=== PATIENT | male | born 1940 | race Caucasian/White ===

== ENCOUNTER 2017-06-04 14:54 | Emergency (ER) | payer OTHER ==
[2017-06-04 15:22] VITALS: BP 128/71; PULSE 72; TEMP 99; BMI 26.2
--- NOTE | 2017-06-04 15:57 | PDOC ---
History of Present Illness - General History Source: Patient Exam Limitations: No Limitations - History of Present Illness Initial Comments: 06/04/17 16:40 The patient is a 77 year old male, with a significant past medical history of dysrhythmia, hypertension, and diverticulosis, who presents to the emergency department with an injury to his left foot status post tripping down the stairs this afternoon. The patient reports that he was going down the stairs to the bathroom and had socks on when he lost his footing on the carpeted stairs and bashed his toes at the bottom. He reports that the affected area is bleeding, swollen. bruised, and painful. The patient does not recall when his last tetanus shot was. He denies chest pain, shortness of breath, headache, lightheadedness and dizziness. He denies hitting his head, LOC, and any other bodily pain or injury. Allergies: clindamycin, aspirin, penicillin Social History: Never smoked, drinks alcohol socially <Caryn Morrell - Last Filed: 06/04/17 16:40> <Erika Arvizu - Last Filed: 06/04/17 18:02> - General Chief Complaint: Bone Injury Stated Complaint: LEFT FOOT INJURY Time Seen by Provider: 06/04/17 14:56 Past History <Caryn Morrell - Last Filed: 06/04/17 16:40> - Past Medical History Cardiac Disorders: Yes (DYSRYTHMIA) GI Disorders: Yes (DIVERTICULOSIS) HTN: Yes Other medical history: SKIN CANCER - Psycho/Social/Smoking Cessation Hx Anxiety: No Suicidal Ideation: No Smoking Status: Yes Smoking History: Never smoked Number of Cigarettes Smoked Daily: 0 Information on smoking cessation initiated: No Hx Alcohol Use: Yes (SOCIAL) Drug/Substance Use Hx: No Substance Use Type: Alcohol <Erika Arvizu - Last Filed: 06/04/17 18:02> - Past Medical History Allergies/Adverse Reactions: Allergies Allergy/AdvReac Type Severity Reaction Status Date / Time clindamycin Allergy Intermediate Verified 06/04/17 14:56 aspirin Allergy Unknown Verified 06/04/17 14:56 Penicillins Allergy Unknown Verified 06/04/17 14:56 Home Medications: Ambulatory Orders Amlodipine Besylate [Norvasc -] 5 mg PO DAILY 06/30/14 Hydrochlorothiazide [Hctz -] 12.5 mg PO DAILY 06/30/14 Metoprolol Succinate [Toprol XL -] 25 mg PO DAILY 06/30/14 Zolpidem Tartrate [Ambien] 10 mg PO HS 06/30/14 Ranitidine [Zantac -] 150 mg PO DAILY 06/04/17 Tramadol HCl 0.5 - 1 tab PO Q6H PRN #12 tablet MDD 4 tabs 06/04/17 Review of Systems - Review of Systems Able to Perform ROS?: Yes Comments:: 06/04/17 16:41 GENERAL/CONSTITUTIONAL: No fever or chills. No weakness. HEAD, EYES, EARS, NOSE AND THROAT: No change in vision. No ear pain or discharge. No sore throat. CARDIOVASCULAR: No chest pain or shortness of breath. RESPIRATORY: No cough, wheezing, or hemoptysis. GASTROINTESTINAL: No nausea, vomiting, diarrhea or constipation. GENITOURINARY: No dysuria, frequency, or change in urination. MUSCULOSKELETAL: +Pain to left foot No neck or back pain. SKIN: +Bleeding, swelling, and bruising to 3, 4, 5 toes on left foot No rash NEUROLOGIC: No headache, vertigo, loss of consciousness, or change in strength/ sensation. ENDOCRINE: No increased thirst. No abnormal weight change. HEMATOLOGIC/LYMPHATIC: No anemia, easy bleeding, or history of blood clots. ALLERGIC/IMMUNOLOGIC: No hives or skin allergy. <Caryn Morrell - Last Filed: 06/04/17 16:40> *Physical Exam - Vital Signs Last Vital Signs Temp Pulse Resp BP Pulse Ox 99 F 72 18 128/71 96 06/04/17 14:55 06/04/17 14:55 06/04/17 14:55 06/04/17 14:55 06/04/17 14:55 <Caryn Morrell - Last Filed: 06/04/17 16:40> - Vital Signs Last Vital Signs Temp Pulse Resp BP Pulse Ox 99 F 72 18 128/71 96 06/04/17 14:55 06/04/17 14:55 06/04/17 14:55 06/04/17 14:55 06/04/17 14:55 - Physical Exam Comments: GENERAL: Awake, alert, and fully oriented, in no acute distress HEAD: No signs of trauma EYES: PERRLA, EOMI, sclera anicteric, conjunctiva clear ENT: Auricles normal inspection, hearing grossly normal, nares patent, oropharynx clear without exudates. Moist mucosa NECK: Normal ROM, supple, no lymphadenopathy, JVD, or masses LUNGS: Breath sounds equal, clear to auscultation bilaterally. No wheezes, and no crackles HEART: Regular rate and rhythm, normal S1 and S2, no murmurs, rubs or gallops ABDOMEN: Soft, nontender, normoactive bowel sounds. No guarding, no rebound. No masses EXTREMITIES: Normal range of motion, no edema. No clubbing or cyanosis. No cords , erythema, or tenderness NEUROLOGICAL: Cranial nerves II through XII grossly intact. Normal speech, normal gait SKIN: Warm, Dry, normal turgor. +Multiple small lacerations to L foot- one between toes 3 and 4, and one between toes 4 and 5. No active bleeding from these. Also with 1cm laceration to the plantar surface at the base of the 3rd toe with oozing of blood. <Erika Arvizu - Last Filed: 06/04/17 18:02> Procedures - Laceration/Wound Repair Plantar Toe 3rd digit Wound Length: to 2.5 cm Wound Explored: clean, no foreign body present Wound's Depth, Shape: superficial Irrigated w/ Saline: Yes Anesthesia: 1% Lidocaine Amount of Anesthetic (ccs): 2 (digital blocks for toes 2-5 to facilitate exam and repair) Wound Repaired With: Sutures Suture Size/Type: 4:0, proline Number of Sutures: 2 Sterile Dressing Applied: Yes Progress: 06/04/17 15:54 Pt with multiple small lacerations to the plantar surfaces at the bases of toes 3, 4, and 5. The lacerations for toes 4-5 are small, do not require suture repair. Third toe has larger lac that was open and still oozing blood. Two sutures were placed to this wound with good hemostasis. Bacitracin applied to toes 3-5, sterile gauze packing and kerlix. Ice pack applied. <Erika Arvizu - Last Filed: 06/04/17 18:02> ED Treatment Course - Medications Given in the ED: ED Medications Discontinued Medications Generic Name Dose Route Start Last Admin Trade Name Freq PRN Reason Stop Dose Admin Diphtheria/Tetanus/Acell Pertussis 0.5 ml 06/04/17 15:58 06/04/17 16:04 Adacel Adolescent/Adult - IM 06/04/17 15:59 Not Given .ONCE ONE Diphtheria/Tetanus/Acell Pertussis 0.5 ml 06/04/17 16:03 06/04/17 16:19 Boostrix - IM 06/04/17 16:04 0.5 ml .ONCE ONE Administration <Caryn Morrell - Last Filed: 06/04/17 16:40> *DC/Admit/Observation/Transfer - Attestations Scribe Attestion: 06/04/17 16:41 Documentation prepared by MARIE Artis, acting as medical laboratory technologist for Erika Arvizu MD. <Caryn Morrell - Last Filed: 06/04/17 16:40> - Discharge Dispostion Admit: No <Erika Arvizu - Last Filed: 06/04/17 18:02> Diagnosis at time of Disposition: Laceration of toe Qualifiers: Encounter type: initial encounter Toe: unspecified toe Damage to nail status: without damage Foreign body presence: without foreign body Laterality: left Qualified Code(s): S91.119A - Laceration without foreign body of unspecified toe without damage to nail, initial encounter - Discharge Dispostion Disposition: HOME Condition at time of disposition: Stable - Patient Instructions Printed Discharge Instructions: DI for Laceration Repair -- Simple, DI for Foot Sprain Additional Instructions: RETURN TO THE ER BETWEEN JUNE 12- TO HAVE YOUR STITCHES REMOVED. RETURN SOONER FOR SEVERE PAIN, REDNESS, DRAINAGE OF PUS. KEEP THE WOUNDS DRY FOR THE FIRST 48 HOURS. AFTER THAT IT IS OK IF THEY GET WET , BUT DRY THEM WELL AND COVER WITH GAUZE.
[2017-06-04] MEDS ORDERED: DIPHTH,PERTUSS(ACELL),TET VAC 0.5 ML VIAL IM ONE (15:58)
[2017-06-04] MEDS ORDERED: DIPHTH,PERTUSS(ACELL),TET 0.5 ML DISP.SYRIN IM ONE (16:03)
[2017-06-04] MEDS ORDERED: ACETAMINOPHEN 325 MG TABLET (FP) PO ONE (17:54)
[2017-06-04] MEDS ORDERED: ACETAMINOPHEN 325 MG TABLET (FP) ONE (17:55)
== END 2017-06-04 18:08 | disposition home or self-care (01) ==
LOC: FER 14:54
PROC: 0HQNXZZ Repair Left Foot Skin, External Approach (ICD-10-PCS; principal; 2017-06-04)
PROC: 3E0234Z Introduction of Serum, Toxoid and Vaccine into Muscle, Percutaneous Approach (ICD-10-PCS; 2017-06-04)
DX: S91.119A Laceration without foreign body of unspecified toe without damage to nail, initial encounter (principal); W10.9XXA Fall (on) (from) unspecified stairs and steps, initial encounter; Y93.89 Activity, other specified; Y92.9 Unspecified place or not applicable; I10 Essential (primary) hypertension; Z85.828 Personal history of other malignant neoplasm of skin; I49.9 Cardiac arrhythmia, unspecified
CPT/HCPCS: 73630-TC-LT; 90715; 99283-25

== ENCOUNTER 2019-12-24 07:11 | Inpatient (IN) | payer OTHER ==
--- NOTE | 2019-12-24 07:34 | PDOC ---
History of Present Illness - General Chief Complaint: Chest Pain Stated Complaint: CHEST PAIN Time Seen by Provider: 12/24/19 07:33 History Source: Patient Exam Limitations: No Limitations - History of Present Illness Initial Comments: 12/24/19 07:34 Hair Allen is an 79M with PMH HTN, GERD, diverticulitis, possible undiagnosed dementia presenting with new onset chest pain. Patient presents with at bedside, neither of whom is a good historian. Reports that at around 2AM woke up with a R-sided parasternal chest pain, called EMS. Per EMS report, patient was in pain and diaphoretic when they got there, and patient reports some milder chest pain at this time. Patient unable to characterize pain well, just says it hurts. Per , has had one episode of chest pain like this 2 years ago in [place] and brought ECG, but patient is unable to remember any prior episodes. Denies any history of heart attack, stroke, or CHF, was formerly on Lasix but taken off for some reason. Denies any prior illness, sick contacts, swelling in legs, abdominal pain, fever/chills, dizziness, N/V, diarrhea. Only medications taken daily are BID metoprolol and amlodipine for HTN. Past History - Past Medical History Allergies/Adverse Reactions: Allergies Allergy/AdvReac Type Severity Reaction Status Date / Time clindamycin Allergy Intermediate Verified 06/04/17 14:56 aspirin Allergy Unknown Verified 06/04/17 14:56 Penicillins Allergy Unknown Verified 06/04/17 14:56 Home Medications: Ambulatory Orders Amlodipine Besylate [Norvasc -] 5 mg PO DAILY 06/30/14 Metoprolol Succinate [Toprol XL -] 25 mg PO DAILY 06/30/14 Cardiac Disorders: Yes (DYSRYTHMIA) GI Disorders: Yes (DIVERTICULOSIS) HTN: Yes - Psycho Social/Smoking Cessation Hx Smoking Status: Yes Smoking History: Never smoked Number of Cigarettes Smoked Daily: 0 Hx Alcohol Use: Yes (SOCIAL) Drug/Substance Use Hx: No Substance Use Type: Alcohol Review of Systems - Review of Systems Able to Perform ROS?: Yes Constitutional: No: Chills, Fever HEENTM: No: Eye Pain, Blurred Vision, Recent change in vision Respiratory: No: Cough, Shortness of Breath, Wheezing, Hemoptysis Cardiac (ROS): Yes: Chest Pain. No: Edema, Irregular Heart Rate, Lightheadedness, Palpitations, Syncope, Chest Tightness ABD/GI: No: Diarrhea, Nausea, Poor Appetite, Poor Fluid Intake, Vomiting : No: Symptoms Reported Musculoskeletal: No: Symptoms Reported Integumentary: No: Symptoms Reported Neurological: No: Headache, Numbness, Paresthesia, Weakness, Unsteady Gait, Ataxia, Dizziness Endocrine: No: Symptoms Reported Hematologic/Lymphatic: No: Symptoms Reported All Other Systems: Reviewed and Negative *Physical Exam - Physical Exam General Appearance: Yes: Nourished, Appropriately Dressed, Obese HEENT: positive: EOMI, SACHIN, Normal Voice, Symmetrical, Pharynx Normal, Hearing Decreased. negative: Normal ENT Inspection, Scleral Icterus (R), Scleral Icterus (L), Muffled/Hoarse voice, Pharyngeal Erythema, Tonsillar Exudate Neck: positive: Trachea midline, Normal Thyroid, Supple. negative: Tender, Rigid, Lymphadenopathy (R), Lymphadenopathy (L) Respiratory/Chest: positive: Chest Tender (reproducible chest pain to R anterior chest wall by RLSB), Crackles (bialteral lung bases). negative: Respiratory Distress, Accessory Muscle Use, Decreased Breath Sounds Cardiovascular: positive: Regular Rhythm, Regular Rate. negative: Murmur Gastrointestinal/Abdominal: positive: Normal Bowel Sounds, Soft, Protuberent. negative: Tender, Organomegaly, Pulsatile Mass, Guarding, Rebound Musculoskeletal: positive: Normal Inspection. negative: CVA Tenderness, Vertebral Tenderness Extremity: positive: Normal Capillary Refill, Normal Inspection, Normal Range of Motion, Tender (upper back bilateral reproducible pain above body of scapula bilaterally), Pelvis Stable. negative: Swelling, Calf Tenderness Integumentary: positive: Normal Color, Dry, Warm Neurologic: positive: Fully Oriented, Alert, Normal Mood/Affect, Normal Response , Motor Strength 5/5 (alert to self, birthday, location, date, month). negative : Facial Droop, Numbness, Sensory Deficit ED Treatment Course - LABORATORY CBC & Chemistry Diagram: 12/24/19 08:11 12/24/19 08:11 Medical Decision Making - Medical Decision Making 12/24/19 08:05 Patient is a poor historian, but presents with new onset chest pain for 5 hours , reproducible, but associated with diaphoresis. Only reported history of HTN, possibly CHF but no longer on Lasix. Still having chest pain, no SOB, but has crackles at both lung bases concerning for CHF, PNA, effusion. No muffled heart sounds, no pedal edema. Evaluating for ACS. BP 119/76 (RA) and 120/71 (LA), no BP differential between arms concerning for dissection despite upper back pain. - CMP/CBC for eval lytes/infection - CP/ECG/CXR for eval ACS - BNP for eval CHF ECG shows LBBB and LAD with HR 56 QRS 82 QTc 416, no obvious TWI or ischemic changes, relatively unchanged from prior from 2017 in OSH. 12/24/19 08:22 Patient reporting stronger chest pain at this time, ordering for 0.5in Nitropaste. 12/24/19 10:06 Labs notable for: - CMP WNL - CBC WNL - trop 0.07, no priors Patient will need admission for further evaluation of chest pain and crackles on exam, needs ECHO and further evaluation. HEART Score of 5 given age, LBBB, history, obesity/HTN 12/24/19 14:29 Discussed case with HAIR SPECIALIST ginny Rueda for admit tele/obs under Dr. Larson. Would like Dr. Guerrero consult. Dr. Guerrero recommends CTA chest for evaluation of dissection, will order. Discharge - Discharge Information Problems reviewed: Yes Clinical Impression/Diagnosis: Chest pain Qualifiers: Chest pain type: unspecified Qualified Code(s): R07.9 - Chest pain, unspecified Condition: Stable - Admission Yes - Follow up/Referral - Patient Discharge Instructions - Post Discharge Activity
--- NOTE | 2019-12-24 07:43 | PDOC ---
Attending Attestation - Resident Resident Name: CecilioYaniv - ED Attending Attestation I have performed the following: I have examined & evaluated the patient, The case was reviewed & discussed with the resident, I agree w/resident's findings & plan - HPI HPI: 12/24/19 07:28 79y M hx of dysrrhtyhmia, htn, diverticulotsis, presents to the ED with chest pain. Pt notes that he was feeling fine yesterday during the day, however, approximtaely 2am he developed a chest pain and r sided back pain. Pt does remember having this pain i nthe past but doesnt remember the circmstances of the pain. Pt denies any sob, n/v, diaphoersis, lightheadedness palpitations. Pt notes he still has some substernal cp and right sided back pain. Pt unable to elaborate on the nature o fthe pain. Allergies: clindamycin, aspirin, penicillin Social History: Never smoked, drinks alcohol socially - Physicial Exam PE: 12/24/19 07:44 GENERAL: The patient is awake, alert, and fully oriented, Nontoxic - in no acute distress. HEAD: Normocephalic, atraumatic. EYES: extraocular movements intact, sclera anicteric, conjunctiva clear. ENT: Normal voice, Moist mucous membranes. NECK: Normal range of motion, supple LUNGS: basilar rales, no acute respira HEART: Regular rate and rhythm, normal S1 and S2 without murmur, rub or gallop. ABDOMEN: Soft, nontender, No guarding, no rebound. No CVA tenderness EXTREMITIES: Normal range of motion, no edema. NEUROLOGICAL: No facial assymetry, Normal speech, PSYCH: Normal mood, normal affect. SKIN: Warm, Dry, normal turgor, - Medical Decision Making 12/24/19 07:44 79-year-old gentleman history of dysrhythmia, hypertension, and diverticulosis, presenting with a complaint of chest pain Clinically the patient is well-appearing, no distress, with an unremarkable physical exam ddx - includes possible acs, consider dissecton, however pain is reproducible to palpation and bp is symmetric in bilateral arms and pts not hypertension will ck labs, trop 12/24/19 09:56 pts labs reviewed, cxr reviewed will admit for further mangaement Heart Score/ECG Review - ECG Impressions Comment:: 12/24/19 07:45 Twelve-lead EKG was performed and reviewed by me. There is normal sinus rhythm with a normal rate. Rate of 65 left axis deviation LBBB ekg unchanged when compare with prior ekg from 2017
[2019-12-24] MEDS ORDERED: NITROGLYCERIN 2% OINTMENT - 1GM PACKET TD ONE ×2 (08:21→08:31)
[2019-12-24] MEDS ORDERED: ACETAMINOPHEN 1000 MG/100 ML VIAL (NON FORMULARY) IVPB ONE (08:39)
[2019-12-24] MEDS ORDERED: ACETAMINOPHEN INJECTION 100 ML IVPB ONE (08:40)
[2019-12-24 09:01] LABS: BASO % 1.2 % (0-2.0); HEMOGLOBIN 15.2 GM/dL (11.7-16.9); LYMPH % 31.4 % (8-40); MCH 32.7 pg (25.7-33.7); MCHC 34.5 g/dl (32.0-35.9); MEAN CELL VOLUME 94.8 fl (80-96); MEAN PLT VOLUME 8.3 fl (7.5-11.1); MONO % 9.2 % (3.8-10.2); NEUT % 53.2 % (42.8-82.8); PLATELET COUNT 227 K/MM3 (134-434); RBC 4.64 M/mm3 (4.00-5.60); RDW 13.3 % (11.9-15.9); WHITE BLOOD COUNT 8.7 K/mm3 (4.0-10.0)
--- NOTE | 2019-12-24 09:23 | EKG ---
Test Reason : Blood Pressure : / mmHG Vent. Rate : 056 BPM Atrial Rate : 056 BPM P-R Int : 196 ms QRS Dur : 178 ms QT Int : 502 ms P-R-T Axes : 072 -54 080 degrees QTc Int : 484 ms SINUS BRADYCARDIA LEFT AXIS DEVIATION LEFT BUNDLE BRANCH BLOCK ABNORMAL ECG WHEN COMPARED WITH ECG OF 06-SEP-2001 10:03, LEFT BUNDLE BRANCH BLOCK IS NOW PRESENT Confirmed by Sahil Guerrero MD ([id number]) on 12/24/2019 9:22:53 AM Referred By: Confirmed By:Sahil Guerrero MD
[2019-12-24 09:34] LABS: ALBUMIN 3.5 g/dl (3.4-5.0); BILIRUBIN,TOTAL 0.6 mg/dL (0.2-1); CALCIUM 8.4 mg/dL (8.5-10.1); N-TERMINAL BNP 607.2 pg/ml (5-450); POTASSIUM 3.7 mmol/L (3.5-5.1)
[2019-12-24] MEDS ORDERED: LIDOCAINE 5% TOPICAL PATCH TP ONE (09:56)
[2019-12-24 10:23] LABS: INR 1.07 (0.83-1.09); PROTHROMBIN TIME (PATIENT) 12.6 SEC (9.7-13.0)
[2019-12-24 10:27] LABS: ACTIVATED PTT 30.7 SECONDS (25.2-36.5)
[2019-12-24] MEDS ORDERED: LIDOCAINE 5% TOPICAL PATCH ONE (10:47)
--- NOTE | 2019-12-24 12:08 | CON.CARD ---
Consult Consult Specialty:: Cardiology Referred by:: Neo Reason for Consultation:: chest pain, elevated troponin - History of Present Illness Chief Complaint: chest pain History of Present Illness: He is an 79 year old man with a history of HTN, GERD, diverticulitis, recently seen in a hospital in [place] with chest pain who presents with one day of chest pain , unable to describe, right sided with SOB and radiation to the mid back. Pain is nonexertional, waxes and wanes. No exacerbating or alleviating factors. No orthopnea, pnd or edema. Baseline exercise tolerance is good. ECG LBBB no change CXR ANDREA Troponin 0.07 - History Source History Provided By: Patient, Family Member, Medical Record - Alcohol/Substance Use Hx Alcohol Use: Yes (SOCIAL) - Smoking History Smoking history: Never smoked Aproximately how many cigarettes per day: 0 Home Medications - Allergies Allergies/Adverse Reactions: Allergies Allergy/AdvReac Type Severity Reaction Status Date / Time clindamycin Allergy Intermediate Verified 06/04/17 14:56 aspirin Allergy Unknown Verified 06/04/17 14:56 Penicillins Allergy Unknown Verified 06/04/17 14:56 - Home Medications Home Medications: Ambulatory Orders Amlodipine Besylate [Norvasc -] 5 mg PO DAILY 06/30/14 Metoprolol Succinate [Toprol XL -] 25 mg PO DAILY 06/30/14 Review of Systems - Review of Systems Constitutional: reports: No Symptoms Eyes: reports: No Symptoms HENT: reports: No Symptoms Neck: reports: No Symptoms Respiratory: reports: No Symptoms Gastrointestinal: reports: No Symptoms Genitourinary: reports: No Symptoms Musculoskeletal: reports: No Symptoms Vital Signs: Vital Signs Temperature 97.8 F 12/24/19 07:34 Pulse Rate 62 12/24/19 07:34 Respiratory Rate 16 12/24/19 07:34 Blood Pressure 128/70 12/24/19 07:34 O2 Sat by Pulse Oximetry (%) 100 12/24/19 07:34 Constitutional: Yes: Well Nourished, No Distress Eyes: Yes: Conjunctiva Clear, EOM Intact HENT: Yes: Atraumatic, Normocephalic Neck: Yes: Supple, Trachea Midline Respiratory: Yes: CTA Bilaterally Gastrointestinal: Yes: Normal Bowel Sounds, Soft Cardiovascular: Yes: Regular Rate and Rhythm JVD: No Carotid Bruit: No PMI: Non-Displaced Heart Sounds: Yes: S1, S2 Musculoskeletal: Yes: WNL Extremities: Yes: WNL Edema: No Peripheral Pulses WNL: Yes Integumentary: Yes: WNL - Other Data Labs, Other Data: CBC, BMP 12/24/19 08:11 12/24/19 08:11 INR, PTT INR 1.07 (0.83-1.09) 12/24/19 08:11 Troponin, BNP 12/24/19 08:11 Troponin I 0.07 H B-Natriuretic Peptide 607.2 H Troponin, BNP 12/24/19 08:11 Troponin I 0.07 H B-Natriuretic Peptide 607.2 H Imaging - Results Chest X-ray: Report Reviewed (ANDREA) EKG: Report Reviewed (nsr lbbb) Assessment/Plan He is an 79 year old man with a history of HTN, GERD, diverticulitis, recently seen in a hospital in [place] with chest pain who presents with one day of chest pain , unable to describe, right sided with SOB and radiation to the mid back. Pain is nonexertional, waxes and wanes. No exacerbating or alleviating factors. No orthopnea, pnd or edema. Baseline exercise tolerance is good. ECG LBBB no change CXR ANDREA Troponin 0.07 Chest pain/ NSTEMI -troponin is borderline elevated, ECG LBBB no change -pain is atypical but I am also concerned about dissection. -echo ordered -CT scan to rule out dissection -repeat CE's x 3 -asa -if CT scan is negative add Lovenox full dose -continue beta richard, increase dose as tolerated. Continue norvasc -add Imdur 30 mg daily. -will follow with you.
--- NOTE | 2019-12-24 13:30 | HP ---
Admitting History and Physical - Primary Care Physician PCP: Marlen Larson - Admission Chief Complaint: Chest Pain History of Present Illness: Patient is an 79 y/o male with past medical history of HTN. Patient states that he was woken up at 2 am with pressure-like right sided chest pain that would radiate to left upper back. Chest pain was not accompanied with SOB, dizziness, palpitations, abdominal pain. He says pain is alleviated with relaxation and exacerbated with movement. The last episode he had like this was 2 years ago in [place]. In ER noted with troponin 0.07 with no prior to compare. Cardiology consulted. History Source: Patient Limitations to Obtaining History: No Limitations - Past Medical History Cardiovascular: Yes: HTN - Past Surgical History Past Surgical History: Yes: None - Smoking History Smoking history: Never smoked Aproximately how many cigarettes per day: 0 - Alcohol/Substance Use Hx Alcohol Use: Yes (SOCIAL) - Social History Usual Living Arrangement: Yes: With Spouse ADL: Independent History of Recent Travel: No Home Medications - Allergies Allergies/Adverse Reactions: Allergies Allergy/AdvReac Type Severity Reaction Status Date / Time clindamycin Allergy Intermediate Verified 06/04/17 14:56 aspirin Allergy Unknown Verified 06/04/17 14:56 Penicillins Allergy Unknown Verified 06/04/17 14:56 - Home Medications Home Medications: Ambulatory Orders Amlodipine Besylate [Norvasc -] 5 mg PO DAILY 06/30/14 Metoprolol Succinate [Toprol XL -] 25 mg PO DAILY 06/30/14 Review of Systems - Review of Systems Constitutional: reports: No Symptoms Eyes: reports: No Symptoms HENT: reports: No Symptoms Neck: reports: No Symptoms Cardiovascular: reports: Chest Pain Respiratory: reports: No Symptoms Gastrointestinal: reports: No Symptoms Genitourinary: reports: No Symptoms Breasts: reports: No Symptoms Reported Musculoskeletal: reports: Back Pain Integumentary: reports: No Symptoms Neurological: reports: No Symptoms Endocrine: reports: No Symptoms Hematology/Lymphatic: reports: No Symptoms Psychiatric: reports: No Symptoms Physical Examination Vital Signs: Vital Signs Temperature 97.8 F 12/24/19 07:34 Pulse Rate 62 12/24/19 07:34 Respiratory Rate 16 12/24/19 07:34 Blood Pressure 128/70 12/24/19 07:34 O2 Sat by Pulse Oximetry (%) 100 12/24/19 07:34 Constitutional: Yes: No Distress, Calm Eyes: Yes: Conjunctiva Clear HENT: Yes: Atraumatic Neck: Yes: Supple Cardiovascular: Yes: Regular Rate and Rhythm Respiratory: Yes: Regular, CTA Bilaterally Gastrointestinal: Yes: Normal Bowel Sounds, Soft Musculoskeletal: Yes: WNL Extremities: Yes: WNL Edema: No Neurological: Yes: Alert, Oriented Psychiatric: Yes: Alert, Oriented Labs: CBC, BMP 12/24/19 08:11 12/24/19 08:11 Problem List - Problems (1) HTN (hypertension) Assessment/Plan: -Amlodipine, Metoprolol -low Na diet Code(s): I10 - ESSENTIAL (PRIMARY) HYPERTENSION (2) Chest pain Assessment/Plan: -Telemetry monitoring -Cardiology on board -troponin 0.07, repeat ordered -Echocardiogram -Chest CTA to R/O dissection -add Imdur 30mg daily -will add Lovenox after Chest CTA results Code(s): R07.9 - CHEST PAIN, UNSPECIFIED Qualifiers: Chest pain type: unspecified Qualified Code(s): R07.9 - Chest pain, unspecified Assessment/Plan see problem list
--- NOTE | 2019-12-24 14:59 | ECHO ---
Name: JAVON OVALLE Exam:Adult Echocardiogram Study Date: 12/24/2019 02:16 PM Age: 79 yrs Height: 70 in Weight: 190 lb BSA: 2.0 m2 MMode/2D Measurements & Calculations IVSd: 1.0 cm Ao root diam: 2.9 cm LVIDd: 4.2 cm LA dimension: 3.8 cm LVIDs: 3.2 cm ACS: 2.0 cm LVPWd: 1.3 cm EDV(Teich): 78.9 ml LVOT diam: 2.0 cm ESV(Teich): 42.0 ml RV S To: 15.2 cm/sec Doppler Measurements & Calculations MV E max to: 77.9 cm/sec MVA(VTI): 3.0 cm2 MV A max to: 54.3 cm/sec MV V2 max: 80.6 cm/sec MV E/A: 1.4 MV max P.6 mmHg MV dec time: 0.24 sec MV V2 mean: 45.2 cm/sec MV mean P.98 mmHg MV V2 VTI: 18.6 cm Ao V2 max: 107.8 cm/sec LV V1 max P.4 mmHg Ao max P.6 mmHg LV V1 mean P.9 mmHg Ao V2 mean: 83.4 cm/sec LV V1 max: 92.1 cm/sec Ao mean P.1 mmHg LV V1 mean: 64.9 cm/sec Ao V2 VTI: 21.2 cm LV V1 VTI: 18.0 cm KHUSHBU(I,D): 2.6 cm2 KHUSHBU(V,D): 2.6 cm2 MR max to: 473.5 cm/sec SV(LVOT): 55.7 ml MR max P.7 mmHg TR max to: 225.9 cm/sec PA V2 max: 88.3 cm/sec TR max P.6 mmHg PA max P.1 mmHg Med Peak E' To: 4.1 cm/sec Med E/e': 19.2 Lat Peak E' To: 11.7 cm/sec Lat E/e': 6.6 Procedure A complete two-dimensional transthoracic echocardiogram was performed (2D, M-mode, Doppler and color flow Doppler). Left Ventricle The left ventricle is normal in size. Ejection Fraction = 40%. Left ventricular systolic function is mild to moderately reduced. E/A reversal consistent with but not diagnostic of poor LV compliance. Septal mot ion is consistent with conduction abnormality. There is mild to moderate anterior wall hypokinesis. Right Ventricle The right ventricle is normal in size and function. Atria Normal left and right atrial size and function. Mitral Valve There is mild to moderate mitral valve thickening. There is mild mitral regurgitation. Tricuspid Valve The tricuspid valve is normal in structure and function. There is trace tricuspid regurgitation. Righ t ventricular systolic pressure is 28 mmhg. Assuming the RA pressure is 5 mmHg. Aortic Valve There is mild to moderate aortic valve thickening. Pulmonic Valve The pulmonic valve is normal in structure and function. Great Vessels The aortic root is normal size. Normal aortic arch, descending and ascending aorta. No obvious dissec tion could be visualized. Pericardium/Pleura There is no pericardial effusion. There is no pleural effusion. Interpretation Summary The left ventricle is normal in size. Septal motion is consistent with conduction abnormality. There is mild to moderate anterior wall hypokinesis. Left ventricular systolic function is mild to moderately reduced. Ejection Fraction = 40%. There is mild to moderate mitral valve thickening. There is mild mitral regurgitation. There is trace tricuspid regurgitation. Right ventricular systolic pressure is 28 mmhg. There is mild to moderate aortic valve thickening. The aortic root is normal size. Normal aortic arch, descending and ascending aorta No obvious dissection could be visualized. MD Sahil Guerrero 12/24/2019 02:59 PM
[2019-12-24 21:42] VITALS: BMI 28.1
[2019-12-24] MEDS ORDERED: HEPARIN NA (PORCINE) 5,000 UNITS/ML 1ML VIAL SQ SCH (22:00)
[2019-12-24 22:39] LABS: URINE APPEARANCE CLEAR; URINE BILIRUBIN NEGATIVE (NEGATIVE); URINE COLOR YELLOW; URINE GLUCOSE (UA) 500 mg/dl (NEGATIVE); URINE KETONE 15 mg/dl (NEGATIVE); URINE PROTEIN NEGATIVE (NEGATIVE)
[2019-12-24 22:40] LABS: EPI CELLS 0.5 /HPF (0-5/HPF); URINE BACTERIA 0.7 /hpf (NEGATIVE); URINE LEUK ESTERASE NEGATIVE (NEGATIVE); URINE NITRITE NEGATIVE (NEGATIVE); URINE UROBILINOGEN 0.2 mg/dL (0.2-1.0); URINE WBC 0.3 /hpf (0-5)
[2019-12-24 23:12] LABS: COCAINE, UR NEGATIVE ng/ml (CUTOFF=300); METHADONE, UR NEGATIVE ng/ml (CUTOFF=300); OPIATES, URI NEGATIVE ng/ml (CUTOFF=300); PHENCYCLIDINE,URINE NEGATIVE ng/ml (CUTOFF=25); URINE BARBITURATES NEGATIVE ng/ml (CUTOFF=200); URINE BENZODIAZEPINES NEGATIVE ng/ml (CUTOFF=200)
[2019-12-24 23:13] LABS: URINE AMPHETAMINES NEGATIVE ng/ml (CUTOFF=500)
--- NOTE | 2019-12-24 23:54 | HOSP ---
Subjective - Review of Symptoms Events since last encounter: hospitalist encounter Notified by the RN that the patient's feels that the patient is confused and not at his baseline. The RN reports that the patient was removing his cardiac leads, and stated" I don't like this hotel, I want to leave". Was asked to assess Orders placed Arrived to bedside, patient is asleep but arousable, alert to name, place and year. he did not know the current president's name- he initially said [place]. PE performed see EMR. Assessment: This is a 79 y/o man with a PMHx of HTN, GERD, Diverticulitis, undiagnosed Dementia. Admitted to Telemetry for Chest Pain Plan: Head CT UA, Urine Culture UDT, ETOH, RPR, Vit B12 levels Fall Precautions Neurochecks Neurological: Yes: Confusion Physical Examination Vital Signs: Vital Signs Temperature 98 F 12/24/19 21:23 Pulse Rate 99 H 12/24/19 21:23 Respiratory Rate 18 12/24/19 21:23 Blood Pressure 150/79 12/24/19 21:23 O2 Sat by Pulse Oximetry (%) 97 12/24/19 21:23 Constitutional: Yes: Well Nourished, No Distress, Calm Eyes: Yes: WNL, Conjunctiva Clear, EOM Intact, PERRL HENT: Yes: WNL, Atraumatic, Normocephalic Neck: Yes: WNL, Supple, Trachea Midline Cardiovascular: Yes: WNL, Regular Rate and Rhythm, S1, S2 Respiratory: Yes: WNL, Regular, CTA Bilaterally Gastrointestinal: Yes: WNL, Normal Bowel Sounds, Soft Breast(s): Yes: WNL Musculoskeletal: Yes: WNL Extremities: Yes: WNL Edema: No Peripheral Pulses WNL: Yes Neurological: Yes: Alert, Confusion, Cran Nerves II-XII Intact ...Motor Strength: WNL Psychiatric: Yes: Alert Labs: CBC, BMP 12/24/19 08:11 Laboratory Results - last 24 hr 12/24/19 12/24/19 12/24/19 08:11 08:11 08:11 WBC 8.7 RBC 4.64 Hgb 15.2 Hct 44.0 MCV 94.8 MCH 32.7 MCHC 34.5 RDW 13.3 Plt Count 227 MPV 8.3 Absolute Neuts (auto) 4.6 Neutrophils % 53.2 Lymphocytes % 31.4 Monocytes % 9.2 Eosinophils % 5.0 H Basophils % 1.2 Nucleated RBC % 0 PT with INR 12.60 INR 1.07 PTT (Actin FS) 30.7 Sodium 138 Potassium 3.7 Chloride 104 Carbon Dioxide 26 Anion Gap 9 BUN 11.0 Creatinine 1.0 Est GFR (CKD-EPI)AfAm 81.45 Est GFR (CKD-EPI)NonAf 70.27 Random Glucose 242 H Calcium 8.4 L Total Bilirubin 0.6 AST 27 ALT 38 Alkaline Phosphatase 59 Creatine Kinase 145 Troponin I 0.07 H B-Natriuretic Peptide 607.2 H Total Protein 7.0 Albumin 3.5 Urine Color Urine Appearance Urine pH Ur Specific [place] Urine Protein Urine Glucose (UA) Urine Ketones Urine Blood Urine Nitrite Urine Bilirubin Urine Urobilinogen Ur Leukocyte Esterase Urine WBC (Auto) Urine RBC (Auto) Urine Casts (Auto) U Epithel Cells (Auto) Urine Bacteria (Auto) Opiates Screen Methadone Screen Barbiturate Screen Phencyclidine Screen Ur Amphetamines Screen MDMA (Ecstasy) Screen Benzodiazepines Screen Cocaine Screen U Marijuana (THC) Screen 12/24/19 12/24/19 22:00 22:00 WBC RBC Hgb Hct MCV MCH MCHC RDW Plt Count MPV Absolute Neuts (auto) Neutrophils % Lymphocytes % Monocytes % Eosinophils % Basophils % Nucleated RBC % PT with INR INR PTT (Actin FS) Sodium Potassium Chloride Carbon Dioxide Anion Gap BUN Creatinine Est GFR (CKD-EPI)AfAm Est GFR (CKD-EPI)NonAf Random Glucose Calcium Total Bilirubin AST ALT Alkaline Phosphatase Creatine Kinase Troponin I B-Natriuretic Peptide Total Protein Albumin Urine Color Yellow Urine Appearance Clear Urine pH 5.0 Ur Specific [place] 1.068 H Urine Protein Negative Urine Glucose (UA) 500 mg/dl Urine Ketones 15 mg/dl Urine Blood Trace Urine Nitrite Negative Urine Bilirubin Negative Urine Urobilinogen 0.2 Ur Leukocyte Esterase Negative Urine WBC (Auto) 0.3 Urine RBC (Auto) 2.0 Urine Casts (Auto) 0.00 U Epithel Cells (Auto) 0.5 Urine Bacteria (Auto) 0.7 Opiates Screen Negative Methadone Screen Negative Barbiturate Screen Negative Phencyclidine Screen Negative Ur Amphetamines Screen Negative MDMA (Ecstasy) Screen Negative Benzodiazepines Screen Negative Cocaine Screen Negative U Marijuana (THC) Screen Negative Current Medications Generic Name Dose Route Start Last Admin Trade Name Freq PRN Reason Stop Dose Admin Amlodipine Besylate 5 mg 12/25/19 10:00 Norvasc - PO DAILY [facility] Heparin Sodium (Porcine) 5,000 unit 12/24/19 22:00 Heparin - SQ BID [facility] Isosorbide Mononitrate 30 mg 12/25/19 10:00 Imdur - PO DAILY [facility] Metoprolol Succinate 25 mg 12/25/19 10:00 Toprol Xl - PO DAILY [facility] Miscellaneous 1 each 12/24/19 22:00 Lidoderm Patch Removal [facility] DAILY@2200 [facility]
[2019-12-24] MEDS: LIDOCAINE PATCH REMOVAL MC SCH (23:59)
[2019-12-25] MEDS ORDERED: MELATONIN 5 MG TABLETS PO ONE (01:16)
[2019-12-25 08:11] LABS: BASO % 0.3 % (0-2.0); EOS % 0.1 % (0-4.5); HEMATOCRIT 42.9 % (35.4-49); HEMOGLOBIN 14.8 GM/dL (11.7-16.9); LYMPH % 16.5 % (8-40); MCH 32.2 pg (25.7-33.7); MCHC 34.4 g/dl (32.0-35.9); MEAN CELL VOLUME 93.7 fl (80-96); MEAN PLT VOLUME 8.2 fl (7.5-11.1); MONO % 10.8 % (3.8-10.2); NEUT % 72.3 % (42.8-82.8); PLATELET COUNT 229 K/MM3 (134-434); RBC 4.59 M/mm3 (4.00-5.60); RDW 12.8 % (11.9-15.9); WHITE BLOOD COUNT 11.2 K/mm3 (4.0-10.0)
[2019-12-25 09:24] LABS: ALBUMIN 3.6 g/dl (3.4-5.0); BILIRUBIN,TOTAL 2.4 mg/dL (0.2-1); BLOOD UREA NITROGEN 17.7 mg/dL (7-18); CALCIUM 8.5 mg/dL (8.5-10.1); CREATININE 0.9 mg/dL (0.55-1.3); POTASSIUM 3.6 mmol/L (3.5-5.1); TOT PROT 6.8 g/dl (6.4-8.2)
--- NOTE | 2019-12-25 09:56 | DS ---
Physical Examination Vital Signs: Vital Signs Temperature 100.2 F H 12/25/19 01:00 Pulse Rate 106 H 12/25/19 01:00 Respiratory Rate 22 H 12/25/19 01:00 Blood Pressure 132/82 12/25/19 05:00 O2 Sat by Pulse Oximetry (%) 97 12/24/19 21:23 Findings/Remarks: Troponin, BNP 12/24/19 12/25/19 08:11 06:12 Troponin I 0.07 H 72.60 H* B-Natriuretic Peptide 607.2 H Constitutional: Yes: No Distress Eyes: Yes: Conjunctiva Clear HENT: Yes: Atraumatic Cardiovascular: Yes: Regular Rate and Rhythm Respiratory: Yes: Regular, CTA Bilaterally Gastrointestinal: Yes: Normal Bowel Sounds, Soft Musculoskeletal: Yes: WNL Extremities: Yes: WNL Edema: No Neurological: Yes: Alert, Oriented Psychiatric: Yes: Alert, Oriented Labs: CBC, BMP 12/25/19 06:12 12/25/19 06:12 Discharge Summary Problems reviewed: Yes Reason For Visit: CHEST PAIN, RULE OUT MYOCARDIAL INFARCTION Current Active Problems Chest pain (Acute) HTN (hypertension) (Acute) Hospital Course: Patient is an 79 y/o male with past medical history of HTN. Patient states that he was woken up at 2 am with pressure-like right sided chest pain that would radiate to left upper back. Chest pain was not accompanied with SOB, dizziness, palpitations, abdominal pain. He says pain is alleviated with relaxation and exacerbated with movement. The last episode he had like this was 2 years ago in [place]. In ER noted with troponin 0.07 with no prior to compare. Cardiology consulted. Repeat troponin this AM shows 72.6. Patient evaluated by Dr Guerrero from cardiology and patient is being transferred to [facility] for cardiac catheterization. Patient currently denies chest pain, SOB, dizziness. Condition: Guarded - Instructions Referrals: Marlen Larson MD [Primary Care Provider] - Sahil Guerrero MD [Staff Physician] - Disposition: TRANSFER ACUTE CARE/OTHER HOSP - Home Medications Comprehensive Discharge Medication List: Ambulatory Orders Amlodipine Besylate [Norvasc -] 5 mg PO DAILY 06/30/14 Metoprolol Succinate [Toprol XL -] 25 mg PO DAILY 06/30/14 Isosorbide Mononitrate [Imdur -] 30 mg PO DAILY tab.sr.24h 12/25/19 Lidocaine Patch Removal [Lidoderm Patch Removal] 1 each [facility] DAILY@2200 each 04/08
[2019-12-25] MEDS ORDERED: amLODIPine BESYLATE 5 MG TABLET (FP) PO SCH (10:00)
[2019-12-25] MEDS ORDERED: metoPROLOL SUCCINATE 25 MG TAB.SR.24H (FP) PO SCH (10:00)
[2019-12-25] MEDS ORDERED: ISOSORBIDE MONONITRATE 30 MG TAB.SR.24H (FP) PO SCH (10:00)
--- NOTE | 2019-12-25 10:06 | PN ---
Progress Note, Physician Chief Complaint: more comfortable, had chest pain last night. tele neg History of Present Illness: He is an 79 year old man with a history of HTN, GERD, diverticulitis, recently seen in [place] pain who presents with one day of chest pain , unable to describe, right sided with SOB and radiation to the mid back. Pain is nonexertional, waxes and wanes. No exacerbating or alleviating factors. No orthopnea, pnd or edema. Baseline exercise tolerance is good. ECG LBBB no change CXR ANDREA Troponin 0.07, 72 Echo 12/24/19 [facility], EF 40%. CTA no dissection. - Current Medication List Current Medications: Active Medications Amlodipine Besylate (Norvasc -) 5 mg PO DAILY [facility] Heparin Sodium (Porcine) (Heparin -) 5,000 unit SQ BID [facility] Last Admin: 12/24/19 23:58 Dose: 5,000 unit Isosorbide Mononitrate (Imdur -) 30 mg PO DAILY [facility] Metoprolol Succinate (Toprol Xl -) 25 mg PO DAILY [facility] Miscellaneous (Lidoderm Patch Removal) 1 each [facility] DAILY@2200 [facility] Last Admin: 12/24/19 23:59 Dose: 1 each - Objective Vital Signs: Vital Signs Temperature 100.2 F H 12/25/19 01:00 Pulse Rate 106 H 12/25/19 01:00 Respiratory Rate 22 H 12/25/19 01:00 Blood Pressure 132/82 12/25/19 05:00 O2 Sat by Pulse Oximetry (%) 97 12/24/19 21:23 Constitutional: Yes: No Distress, Calm Eyes: Yes: Conjunctiva Clear, EOM Intact Labs: CBC, BMP 12/25/19 06:12 12/25/19 06:12 INR, PTT INR 1.07 (0.83-1.09) 12/24/19 08:11 Assessment/Plan He is an 79 year old man with a history of HTN, GERD, diverticulitis, recently seen in [place] who presents with one day of chest pain , unable to describe, right sided with SOB and radiation to the mid back. Pain is nonexertional, waxes and wanes. No exacerbating or alleviating factors. No orthopnea, pnd or edema. Baseline exercise tolerance is good. ECG LBBB no change CXR ANDREA Troponin 0.07 Echo 12/24/19 a[facility], EF 40%. CTA no dissection. Chest pain/ NSTEMI -troponin is borderline elevated, ECG LBBB no change -pain is atypical but I am also concerned about dissection. -echo EF 40% ant wall HK -CT scan neg -asa -continue beta richard, increase dose as tolerated. Continue norvasc -add Imdur 30 mg daily. -will transfer to [facility] for cardiac cath.
[2019-12-25] MEDS: ENOXAPARIN NA (PORCINE) 100 MG/1 ML DISP.SYRIN SQ SCH ×2 (10:45→21:50)
[2019-12-25] MEDS ORDERED: MELATONIN 5 MG TABLETS PO PRN (20:46)
[2019-12-25] MEDS: LIDOCAINE PATCH REMOVAL MC SCH (21:52)
[2019-12-26 01:50] VITALS: BP 113/63; PULSE 97; TEMP 99.2
[2019-12-26 03:11] LABS: BENZODIAZEPINES, UR Negative ng/mL (Cutoff=200); CANNABINOIDS, URINE Negative ng/mL (Cutoff=20); METHADONE, URINE Negative ng/mL (Cutoff=300); OPIATES, UR Negative ng/mL (Cutoff=300); PHENCYCLIDINE, URINE Negative ng/mL (Cutoff=25)
== END 2019-12-26 02:30 | disposition short-term general hospital (02) | DRG 282 ==
LOC: JER 07:11 → JERBED 08:09 → OBSVTOIN 11:35 → J4W 21:10
PROVIDERS: ADMIT Family Medicine; ATTEND Family Medicine
DX: I21.4 Non-ST elevation (NSTEMI) myocardial infarction (principal); R07.9 Chest pain, unspecified; I10 Essential (primary) hypertension; I44.7 Left bundle-branch block, unspecified; K21.9 Gastro-esophageal reflux disease without esophagitis
CPT/HCPCS: 36415; 70450-TC; 71046-TC-FY; 71275-TC; 74177-TC; 80053; 80061; 80307; 81003; 82550; 82553; 82607; 83721; 83880; 84443; 84484; 85025; 85610; 85730; 86593; 87086; 93005; 93010; 93306-TC; 99284-25; G0378; J0131; J1644; Q9967